=== PATIENT | female | born 1965 | race Caucasian/White ===

== ENCOUNTER → 2025-02-27 07:43 | Outpatient (REF) | payer BC, SELFPAY | LOC: EMG 07:43 | PROVIDERS: ATTENDING PHYSICIAN Hospitalist; FAMILY PHYSICIAN Hospitalist | DX: G56.03 Carpal tunnel syndrome, bilateral upper limbs (principal); R20.0 Anesthesia of skin | CPT/HCPCS: 95886; 95911 ==

== ENCOUNTER → 2025-03-01 11:04 | Outpatient (REF) | payer BC, SELFPAY ==
[2025-03-01 12:53] LABS: ALT (SGPT) 19 U/L (0-35); AST (SGOT) 22 U/L (14-36); Albumin 4.1 g/dl (3.5-5.0); Alkaline Phosphatase 71 U/L (38-126); Blood Urea Nitrogen 19 mg/dl (7-17); Calcium 9.2 mg/dl (8.4-10.2); Carbon Dioxide 26 mmol/L (22-30); Chloride 104 mmol/L (98-107); Glucose 90 mg/dl (70-99); Potassium 4.5 mmol/L (3.5-5.1); Sodium 137 mmol/L (135-145); Total Protein 7.0 g/dl (6.3-8.2); eGFR > 60.00
[2025-03-01 12:55] LABS: C-Reactive Protein < 5.00 mg/L (0.0-10.00)
[2025-03-01 13:25] LABS: TSH 2.55 uIU/ml (0.47-4.68)
[2025-03-02 19:10] LABS: HLA-B27 Negative (Negative)
[2025-03-03 10:28] LABS: Buprenorphine, Urine Negative; Carisoprodol, Urine Negative; Ethyl Glucuronide, Urine Negative; Marijuana, Urine Negative; Oxycodone/Oxymorphone, Urine Negative; PCP (Phencyclidine), Urine Negative; Propoxyphene, Urine Negative; Zolpidem, Urine Negative
[2025-03-03 13:27] LABS: Rheumatoid Agglutinin Less Than 10 IU (<10 IU)
[2025-03-04 03:29] LABS: CCP Antibody IgG/IgA 6 Units (0-19)
== END ==
LOC: REG 11:04
PROVIDERS: ATTENDING PHYSICIAN Anesthesiology Pain Medicine; FAMILY PHYSICIAN Hospitalist; REFERRING PHYSICIAN Hospitalist
DX: E03.9 Hypothyroidism, unspecified (principal); M05.9 Rheumatoid arthritis with rheumatoid factor, unspecified; M45.6 Ankylosing spondylitis lumbar region; M79.641 Pain in right hand; Z51.81 Encounter for therapeutic drug level monitoring; Z79.891 Long term (current) use of opiate analgesic
CPT/HCPCS: 36415; 80053; 80307; 84443; 85652; 86140; 86200; 86430; 86812

== ENCOUNTER → 2025-03-15 11:47 | Outpatient (REF) | payer BC, SELFPAY | LOC: RAD 11:47 | PROVIDERS: ATTENDING PHYSICIAN Hospitalist; FAMILY PHYSICIAN Hospitalist | DX: M79.641 Pain in right hand (principal) | CPT/HCPCS: 73110; 73130 ==

== ENCOUNTER → 2025-04-16 06:57 | Outpatient (REF) | payer BC, SELFPAY ==
[2025-04-18 03:40] LABS: Buprenorphine, Urine Negative; Carisoprodol, Urine Negative; Ethyl Glucuronide, Urine Negative; Marijuana, Urine Negative; Oxycodone/Oxymorphone, Urine Negative; PCP (Phencyclidine), Urine Negative; Propoxyphene, Urine Negative; Zolpidem, Urine Negative
== END ==
LOC: REG 06:57
PROVIDERS: ATTENDING PHYSICIAN Anesthesiology Pain Medicine; FAMILY PHYSICIAN Hospitalist
DX: Z51.81 Encounter for therapeutic drug level monitoring (principal); Z79.891 Long term (current) use of opiate analgesic
CPT/HCPCS: 80307; 80372

== ENCOUNTER → 2025-06-13 10:48 | Outpatient (REF) | payer BC, SELFPAY | LOC: REG 10:48 | PROVIDERS: ATTENDING PHYSICIAN Nurse Practitioner; FAMILY PHYSICIAN Hospitalist | DX: Z51.81 Encounter for therapeutic drug level monitoring (principal); Z79.891 Long term (current) use of opiate analgesic | CPT/HCPCS: 80306 ==

== ENCOUNTER → 2025-06-28 09:03 | Outpatient (REF) | payer BC, SELFPAY | LOC: RCS 09:03 | PROVIDERS: ATTENDING PHYSICIAN Internal Medicine Cardiovascular Disease; FAMILY PHYSICIAN Hospitalist | DX: R06.09 Other forms of dyspnea (principal); R60.0 Localized edema | CPT/HCPCS: 93306; 93356 ==

== ENCOUNTER → 2025-07-09 09:39 | Outpatient (REF) | payer BC, SELFPAY | LOC: DHVS 09:39 | PROVIDERS: ATTENDING PHYSICIAN Internal Medicine Cardiovascular Disease; FAMILY PHYSICIAN Hospitalist | DX: R60.0 Localized edema (principal); I87.2 Venous insufficiency (chronic) (peripheral); R06.09 Other forms of dyspnea | CPT/HCPCS: 93970 ==